=== PATIENT | male | born 1990 | race Caucasian/White ===

== ENCOUNTER 2018-06-18 10:49 | Observation (INO) ==
[2018-06-18] MEDS ORDERED: IOPAMIDOL 100 ML BOTTLE IV ONE (10:50)
[2018-06-18] MEDS ORDERED: 0.9 % SODIUM CHLORIDE 2,000 ML IV ONE (10:55)
[2018-06-18] MEDS ORDERED: KETOROLAC 30 MG/ML VIAL IV ONE (10:55)
[2018-06-18] MEDS ORDERED: ONDANSETRON 4 MG/2 ML VIAL IV ONE (10:55)
[2018-06-18] MEDS ORDERED: 0.9 % SODIUM CHLORIDE 1,000 ML IV ONE ×2 (10:57→10:58)
[2018-06-18] MEDS: HYDROmorphone 2 MG/ML VIAL IV PRN ×3 (11:00→12:44)
[2018-06-18 11:46] LABS: Basophils # (Auto) 0.1 K/mcL (0.0-0.3); Basophils % (Auto) 0.7 % (0.0-2.0); Eosinophils # (Auto) 0.2 K/mcL (0.0-0.7); Eosinophils % (Auto) 3.3 % (0.0-7.0); Granulocytes % (Auto) 53.1 % (38.0-78.0); Lymphocytes # (Auto) 2.6 K/mcL (1.5-4.8); Lymphocytes % (Auto) 36.7 % (15.5-49.0); Mean Cell Volume 86.4 fL (80.0-100.0); Mean Corpuscular HGB Conc 33.6 g/dL (31.0-36.0); Monocytes # (Auto) 0.4 K/mcL (0.1-0.9); Monocytes % (Auto) 6.2 % (1.0-12.0); Platelet Count 417 K/mcL (140-440); RBC 5.47 M/mcL (4.50-5.90)
[2018-06-18 12:06] LABS: ALT/SGPT 37 U/l (0-40); Albumin 4.8 gm/dL (3.2-5.2); Albumin/Globulin Ratio 1.5 (1.0-2.3); Alkaline Phosphatase 83 U/L (39-117); Amylase 45 U/L (28-100); Blood Urea Nitrogen 10 mg/dl (6-20); Lipase 28 U/L (7-60)
--- NOTE | 2018-06-18 12:08 | Cat Scan Report ---
CLINICAL INFORMATION: Right-sided pain nausea and vomiting COMPARISON: None. TECHNIQUE: Following enteric contrast, 80 cc of Isovue-300 were injected intravenously, and 60 seconds later, 0.625 mm helical slices were obtained from the mid heart through the subtrochanteric regions. Following reconstruction, 2.5 mm sagittal, coronal and axial reformatted images were processed and reviewed at bone, lung and soft tissue windows. Five minutes later, 0.625 mm helical slices were obtained from the mid heart through the kidneys and viewed at soft tissue windows.The exam was performed using radiation dose optimization techniques including, but not limited to, automated exposure control, adjustment of the mA and/or kV according to patient size and use of iterative reconstruction technique. FINDINGS: Lung bases show no abnormality - no effusion. Visualized heart is normal. Images through the abdomen show the gallbladder and bile ducts, liver, both kidneys, adrenal glands, spleen, pancreas, aorta, including aortic branches be normal in size, configuration and attenuation without focal lesion Images through the pelvis show prostate seminal vesicles and urinary bladder to be unremarkable. There is a small (5 cm) collection of simple fluid in the deep true pelvis. No free air or adenopathy. The stomach, duodenum and proximal jejunum are moderately dilated to the mid jejunal level where there is abrupt concentric narrowing ostensibly due to a stricture or adhesions. The distal jejunum and ileum are decompressed. The colon is unremarkable, although with less than expected amount of stool. The appendix contains luminal contrast and demonstrates a thin, uniform normal wall with no evidence of periappendiceal inflammation. No appendicolith IMPRESSION: 1. Partial small bowel obstruction at the mid jejunal level ostensibly related to adhesion or stricture. Small (5 cm) simple fluid collection noted in the deep true pelvis. 2. Appendix is unremarkable Interpreted and Authenticated by: Micheal Currie 06/18/18
[2018-06-18] MEDS ORDERED: NALOXONE HCL 0.4 MG/ML VIAL IV PRN (12:36)
[2018-06-18] MEDS ORDERED: ONDANSETRON 4 MG/2 ML VIAL IV PRN (12:36)
--- NOTE | 2018-06-18 12:36 | Emergency Department Note ---
Abdominal Pain HPI - General Chief Complaint: Abdominal Pain Stated Complaint: Flank pain, nausea, abd pain Time Seen by Provider: 06/18/18 10:55 Source: patient, family Mode of arrival: ambulatory Limitations: no limitations - History of Present Illness HPI Narrative: 28-year-old male with a 2-day history of abdominal pain. Started last night after he ate at [employer]. He denies any previous surgeries kidney stones bowel problems. Not really any nausea or vomiting but he is having some acid reflux type symptoms with epigastric pain. Never had anything like this previously. Denies fever shortness of breath. Not taking any medicine for it. Last night he did have a bowel movement was normal without blood. No difficulty urinating - Related Data Home Medications Medication Instructions Recorded Confirmed No Known Home Meds 06/18/18 06/18/18 Allergies Allergy/AdvReac Type Severity Reaction Status Date / Time No Known Drug Allergies Allergy Verified 06/18/18 10:53 Review of Systems All systems ED: reviewed and negative except as stated. Abdominal Pain PMH - Past Medical History Attestation: Yes: The following information was validated with the patient. Medical history: Reports: no medical history Surgical history ED: Reports: no surgical history - Social History Smoking status: Never smoker Alcohol use: Reports: Occasionally Drug use: Denies: marijuana Physical Exam Some acute distress secondary to belly pain. Diaphoretic. Normocephalic atraumatic. Conjunctive are clear sclerae nonicteric. No nasal discharge or congestion. Oropharynx is with dry buccal mucosa. Neck is supple without lymphadenopathy or thyromegaly. Heart is tachycardic but no murmurs appreciated. Lungs are clear to auscultation bilaterally without wheezes rales rhonchi or respiratory distress. Abdomen is soft mildly distended and tender somewhat rigid. Especially tender right lower quadrant but also left lower quadrant. Additionally right flank pain. +2 radial pulse. No pedal edema. He is writhing around on the bed secondary to pain. Alert oriented able to answer questions appropriately. Limitations: no limitations Course Vital Signs Temperature 97.0 F 06/18/18 10:53 Pulse Rate 60 06/18/18 10:53 Respiratory Rate 22 06/18/18 10:53 Blood Pressure 170/98 06/18/18 10:53 Pulse Oximetry (%) 100 06/18/18 10:53 Temperature 97.0 F 06/18/18 10:53 Pulse Rate 54 L 06/18/18 12:33 Respiratory Rate 14 06/18/18 12:33 Blood Pressure 127/76 06/18/18 12:31 Pulse Oximetry (%) 100 06/18/18 12:33 Abdominal Pain - Lab Data Lab results reviewed: Yes I reviewed the patient's lab results. Result diagrams: 06/18/18 10:55 06/18/18 10:55 Lab Results 06/18/18 06/18/18 06/18/18 Range/Units 10:55 10:55 10:55 WBC 7.2 (4.5-11.0) K/mcL RBC 5.47 (4.50-5.90) M/mcL Hgb 15.9 (13.5-16.5) g/dL Hct 47.3 (41.0-55.0) % POC Hct 48.0 (41.0-55.0) % MCV 86.4 (80.0-100.0) fL MCH 29.0 (26.0-34.0) pg MCHC 33.6 (31.0-36.0) g/dL RDW 13.0 (11.5-14.5) % Plt Count 417 (140-440) K/mcL MPV 7.8 (7.4-10.4) fL Gran % 53.1 (38.0-78.0) % Lymph % (Auto) 36.7 (15.5-49.0) % [facility] % (Auto) 6.2 (1.0-12.0) % Eos % (Auto) 3.3 (0.0-7.0) % Baso % (Auto) 0.7 (0.0-2.0) % Gran # 3.8 (1.8-8.0) K/mcL Lymph # (Auto) 2.6 (1.5-4.8) K/mcL [facility] # (Auto) 0.4 (0.1-0.9) K/mcL Eos # (Auto) 0.2 (0.0-0.7) K/mcL Baso # (Auto) 0.1 (0.0-0.3) K/mcL VBG Lactic Acid 0.9 (0.5-2.2) mmol/L POC Sodium 139 (133-145) mmol/L Sodium 139 (133-145) mmol/L POC Potassium 3.8 (3.3-5.1) mmol/L Potassium 3.8 (3.3-5.1) mmol/L POC Chloride 100 (96-108) mmol/L Chloride 99 (96-108) mmol/L Carbon Dioxide 25 (22-30) mmol/L POC Total CO2 28 (22-30) mmol/L Anion Gap 15.0 (8-16) POC BUN 11 (6-20) mg/dl BUN 10 (6-20) mg/dl Creatinine 0.9 (0.7-1.2) mg/dl POC Creatinine 0.9 (0.7-1.2) mg/dl GFR Calculation 116 Glucose 102 (70-105) mg/dL POC Glucose 103 (70-105) mg/dL Calcium 9.8 (8.6-10.4) mg/dl POC WB Ioniz Calcium 1.22 (1.16-1.32) mmol/L Total Bilirubin 0.6 (0.0-1.0) mg/dL AST 28 (0-37) U/l ALT 37 (0-40) U/l Alkaline Phosphatase 83 (39-117) U/L Total Protein 8.0 (5.9-8.4) gm/dL Albumin 4.8 (3.2-5.2) gm/dL Globulin 3.2 (2.2-3.7) gm/dL Albumin/Globulin Ratio 1.5 (1.0-2.3) Amylase 45 (28-100) U/L Lipase 28 (7-60) U/L - Radiology Data Radiology results reviewed: Yes I reviewed the patient's radiology results. CT scan of the abdomen pelvis with contrast shows normal appendix and no kidney stones however he does have a small bowel obstruction. Please see report Disposition Pt seen by MATERIAL SPREADER/PA only: No Clinical Impression: Small bowel obstruction Summary: Workup ordered with laboratory and CT scan. Treated with Toradol, Dilaudid, Zofran and IV fluids with partial relief. Although his laboratory is normal, CT scan shows small bowel obstruction in the upper right abdomen consistent with his right flank pain. His clinical exam is quite concerning. I discussed his case with Dr. Drake Mcgowan who agreed to accept the patient in transfer for further evaluation and management in the hospital. Transition orders written at his request Disposition: Xfer As Inpt ([facility]) Condition: Serious Referrals: Mague Armstrong PA-C [Primary Care Provider] -
[2018-06-18] MEDS: 0.9 % SODIUM CHLORIDE 1,000 ML IV SCH ×2 (14:34→21:12)
[2018-06-18] MEDS ORDERED: DIATRIZOATE MEGLU/DIATRIZO SOD 30 ML BOTTLE PO ONE (17:06)
--- NOTE | 2018-06-18 17:24 | XRay Report ---
CLINICAL INFORMATION: Abdominal pain and bowel distention. 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 Serial filming was then obtained over one hour and 30 minutes of the abdomen. Fluoroscopic spot films were also obtained by the radiologist at one hour all the small bowel FINDINGS: The stomach, duodenum, jejunum and ileum are entirely unremarkable. Small bowel transit time approximately 40 minutes. Fluoroscopy was performed and there is no evidence of stricture in the mid jejunum that was suspected on CT IMPRESSION: Normal exam - no evidence of small bowel obstruction. Small bowel transit time is less than one hour Interpreted and Authenticated by: Micheal Currie 06/18/18
--- NOTE | 2018-06-18 18:00 | General Surg History&Physical ---
History of Present Illness Patient information: Note initiated : 06/18/18 at 5:57 pm Service Date, if different from initiated Date: [] Patient: Josh Jeff a 28 y/o M admitted on 06/18/18 for Flank Pain, Nausea, Abd Pain. Chief Complaint: [] HPI: Mr. Jeff is a 28 year old M admitted for partial small bowel obstruction. The patient had onset of sharp mid abdominal pain extending through to his back on the right side about 10 PM last evening.. It lasted throughout the night. He had bloating and nausea but no vomiting. His last bowel movement was 2030 hrs. last evening. He had such severe pain that prompted him to come to the emergency room for evaluation. In the emergency room he was noted to be in severe distress and abdominal x-rays reveal dilated proximal bowel with transition in the mid gut with a decompressed distal bowel. A small bowel follow-through was Completed And this showed a transit time of 90 minutes. The contrast extended to the colon and he has had 2 large bowel movements. He still has crampy abdominal pain. He is admitted for further evaluation.. Past History Past medical history: No medical illness Past surgical history: No surgical procedures Past family history: Mother age 56, alive and well.. Father age 76 with end-stage renal disease.. Sister age 29 with end-stage renal disease Past social history: Tobacco--- chews daily.. Alcohol occasional beer or whiskey. Drugs denies use Medications and Allergies Home Medications Medication Instructions Recorded Confirmed Type No Known Home Meds 06/18/18 06/18/18 History Allergies Allergy/AdvReac Type Severity Reaction Status Date / Time No Known Drug Allergies Allergy Verified 06/18/18 10:53 Exam Temp Pulse Resp BP Pulse Ox 97.5 F 53 L 16 124/80 96 06/18/18 16:00 06/18/18 16:00 06/18/18 16:00 06/18/18 16:00 06/18/18 16:00 - General physical appearance well developed, well nourished, no distress, moderate pain - Eyes PERRL, normal ocular movement. negative: icteric - ENT normal pinna, normal nares, normal mucosa, no hearing loss, no congestion - Head Head exam IM: Present: atraumatic, normal inspection, normocephalic - Neck no masses, no bruits, trachea midline, no lymphadectomy, no venous distension - Cardiovascular Cardiovascular exam IM: Present: normal rate and rhythm, RRR, +S1, +S2. Absent : JVD, tachycardia - Respiratory normal expansion, normal respiratory effort, clear to percussion, clear to auscultation - Abdomen Abdomen: Present: soft, tender (mild tenderness in right lower quadrant), bowel sounds, distended. Absent: organomegaly Hernia: Present: none - Genitourinary Present: normal penis with no external lesions - Integumentary Present: no rash, no growths, no abnormal pigmentation - Neurologic Present: normal coordination, normal sensation - Musculoskeletal Present: normal gait, normal posture - Psychiatric Present: oriented to time, oriented to person, oriented to place, speech is normal, memory intact Assessment and Plan (1) Small bowel obstruction, partial Continue nothing by mouth Follow-up abdominal x-rays in the morning. Repeat labs in the morning Status: Acute
[2018-06-18] MEDS: METOCLOPRAMIDE 10 MG/2 ML VIAL IV SCH (23:44)
[2018-06-19] MEDS: 0.9 % SODIUM CHLORIDE 1,000 ML IV SCH ×2 (03:18→13:04)
[2018-06-19] MEDS: METOCLOPRAMIDE 10 MG/2 ML VIAL IV SCH ×2 (05:47→12:58)
[2018-06-19 07:04] LABS: Basophils # (Auto) 0 K/mcL (0.0-0.3); Basophils % (Auto) 0.9 % (0.0-2.0); Eosinophils # (Auto) 0.2 K/mcL (0.0-0.7); Eosinophils % (Auto) 4.4 % (0.0-7.0); Granulocytes % (Auto) 42.2 % (38.0-78.0); Lymphocytes # (Auto) 2.2 K/mcL (1.5-4.8); Lymphocytes % (Auto) 44.9 % (15.5-49.0); Mean Cell Volume 86.1 fL (80.0-100.0); Mean Corpuscular HGB Conc 34.7 g/dL (31.0-36.0); Mean Corpuscular Hemoglobin 29.9 pg (26.0-34.0); Monocytes # (Auto) 0.4 K/mcL (0.1-0.9); Monocytes % (Auto) 7.6 % (1.0-12.0); Platelet Count 313 K/mcL (140-440); RBC 4.46 M/mcL (4.50-5.90); Red Cell Distribution Width 13.1 % (11.5-14.5)
--- NOTE | 2018-06-19 07:32 | XRay Report ---
CLINICAL INFORMATION: Abdominal pain and distention. COMPARISON: Small bowel follow-through study 06/18/2018 FINDINGS: There is only minimal residual enteric contrast within the colon. Stomach, small and large bowel are normal caliber. No soft tissue mass or free air. IMPRESSION: Normal exam - no small bowel obstruction Interpreted and Authenticated by: Micheal Currie 06/19/18
[2018-06-19 07:44] LABS: ALT/SGPT 26 U/l (0-40); Albumin 3.8 gm/dL (3.2-5.2); Albumin/Globulin Ratio 1.5 (1.0-2.3); Alkaline Phosphatase 61 U/L (39-117); Bilirubin,Direct < 0.2 mg/dL (0.0-0.3); Blood Urea Nitrogen 6 mg/dl (6-20); Gamma Glutamyl Transpeptidase 22 U/L (8-61); Lipase 29 U/L (7-60); Uric Acid 6.7 mg/dL (2.5-8.0)
--- NOTE | 2018-06-19 12:53 | General Surgery Progress Note ---
Subjective Patient reports: feels better, flatus, bowel movement, afebrile Narrative: Note initiated : 06/19/18 at 12:51 pm Service Date, if different from initiated Date: [] Patient: Josh Jeff 28 y/o M admitted on 06/18/18 for Flank Pain,Nausea, Abd Pain/Small Bowel Obstruction. Chief Complaint: [Patient is significantly improved. He had multiple bowel movements during the night. He was able to tolerate clear liquids and full liquid diet without difficulty. He denies abdominal discomfort. He denies nausea. Patient is stable for discharge.] Objective Temp Pulse Resp BP Pulse Ox 97.3 F 74 14 155/73 96 06/19/18 12:00 06/19/18 12:00 06/19/18 12:00 06/19/18 12:00 06/19/18 12:00 - Additional Data Intake & Output - Last 24 hours: Intake & Output 06/17/18 06/18/18 06/19/18 06/20/18 05:59 05:59 05:59 05:59 Intake Total 4200 / 4200 Output Total 175 / 175 Balance 4025 / 4025 Weight 193 lb - General physical appearance well developed, well nourished, no distress - Eyes PERRL, normal ocular movement - ENT normal pinna, normal nares, normal mucosa, no hearing loss, no congestion - Neck no masses, no bruits, trachea midline, no lymphadectomy, no venous distension - Respiratory normal expansion, normal respiratory effort, clear to auscultation - Cardiovascular Cardiovascular exam: Present: normal rate and rhythm, RRR, +S1, +S2. Absent: JVD, tachycardia - Abdomen non tender, bowel sounds (present), surgical scars (none), masses (none) - Integumentary no rash, no growths, no abnormal pigmentation - Neurologic normal coordination, normal sensation - Musculoskeletal normal gait, normal posture - Psychiatric oriented to time, oriented to person, oriented to place, speech is normal, memory intact - Labs 06/19/18 04:10 06/19/18 04:10 Diabetes panel 06/19/18 Range/Units 04:10 Sodium 142 (133-145) mmol/L Potassium 3.8 (3.3-5.1) mmol/L Chloride 106 (96-108) mmol/L Carbon Dioxide 21 L (22-30) mmol/L BUN 6 (6-20) mg/dl Creatinine 0.9 (0.7-1.2) mg/dl Glucose 93 (70-105) mg/dL Calcium 8.5 L (8.6-10.4) mg/dl AST 18 (0-37) U/l ALT 26 (0-40) U/l Alkaline Phosphatase 61 (39-117) U/L Total Protein 6.3 (5.9-8.4) gm/dL Albumin 3.8 (3.2-5.2) gm/dL Triglycerides 92 (<150) mg/dl Calcium panel 06/19/18 Range/Units 04:10 Calcium 8.5 L (8.6-10.4) mg/dl Phosphorus 3.6 (2.7-4.5) mg/dL Albumin 3.8 (3.2-5.2) gm/dL Pituitary panel 06/19/18 Range/Units 04:10 Sodium 142 (133-145) mmol/L Potassium 3.8 (3.3-5.1) mmol/L Chloride 106 (96-108) mmol/L Carbon Dioxide 21 L (22-30) mmol/L BUN 6 (6-20) mg/dl Creatinine 0.9 (0.7-1.2) mg/dl Glucose 93 (70-105) mg/dL Calcium 8.5 L (8.6-10.4) mg/dl Adrenal panel 06/19/18 Range/Units 04:10 Sodium 142 (133-145) mmol/L Potassium 3.8 (3.3-5.1) mmol/L Chloride 106 (96-108) mmol/L Carbon Dioxide 21 L (22-30) mmol/L BUN 6 (6-20) mg/dl Creatinine 0.9 (0.7-1.2) mg/dl Glucose 93 (70-105) mg/dL Calcium 8.5 L (8.6-10.4) mg/dl Total Bilirubin 0.4 (0.0-1.0) mg/dL AST 18 (0-37) U/l ALT 26 (0-40) U/l Alkaline Phosphatase 61 (39-117) U/L Total Protein 6.3 (5.9-8.4) gm/dL Albumin 3.8 (3.2-5.2) gm/dL Assessment and Plan (1) Small bowel obstruction, partial Status: Acute Assessment and plan: Patient is presently asymptomatic. He is stable for discharge home. Current Visit: Yes - Time Spent With Patient Total time spent is greater than 50% in coordination of care (as documented) at patient's floor/unit and/or counseling patient:
== END 2018-06-19 14:25 | disposition home or self-care (01) ==
LOC: ED 10:49 → MEDSUR 14:18 → INTOOBSV 14:20 → MEDSUR 14:20
PROVIDERS: ADMIT Family Medicine Adult Medicine; ATTEND Family Medicine Adult Medicine
CPT/HCPCS: 80047; 85014; 99217; 99218; J1170; J1885; J2270; J2405; J2765; J7030; Q9954; Q9963; Q9967